=== PATIENT | female | born 1975 | race Caucasian/White ===

== ENCOUNTER 2017-03-04 21:21 | Emergency (ER) | payer SELFPAY ==
[~2017-03-04] VITALS: Ht 165.1 cm; Wt 87.0 kg
[~2017-03-04 21:21] MED LIST: IBUP-232 PO; PROM25TA5 PO; TRAM50TA PO
[2017-03-04 21:25] VITALS: BP 137/76; PULSE 101; RESP 16; TEMP 98.3; O2SAT 97
[2017-03-04] MEDS ORDERED: SODIUM CHLOR 0.9% 1000 ML INJ 1,000 ML IV ONE (21:45)
[2017-03-04] MEDS ORDERED: SODIUM CHLORIDE 0.9% FLUSH 10 ML FLUSH IVF PRN (21:45)
[2017-03-04] MEDS ORDERED: ASPIRIN 81 MG CHEW TAB PO ONE (21:45)
--- NOTE | 2017-03-04 21:56 | PD ---
HPI Chief Complaint: Chest Pain Time Seen by Provider: 21:27 Travel History International Travel<30 days: No Contact w/Intl Traveler<30days: No History of Present Illness HPI This is a 41-year-old female who presents to the emergency department with chest discomfort in the left side of her chest, sharp and stabbing, worse with deep breaths associated with some shortness of breath, intermittent lasting for about 5-10 minutes and then subsiding. She felt like her pain was increasing today. She's also been feeling very weak and tired. She has some intermittent headaches and she has no appetite. She denies any leg swelling and denies any recent long trips. She has a history of 2 hiatal hernia surgeries. Otherwise she has no history of hypertension, diabetes or hyperlipidemia. She does have about a [id number] smoking history and she is currently actively trying to quit. She denies any family history of heart disease. PFSH Past Medical History Asthma: Yes Diminished Hearing: No Genitourinary: Yes (MULTI UTI'S, OVARIAN CYSTS) Hiatal Hernia: Yes Immunizations Current: Yes Past Surgical History Abdominal Surgery: Yes (HIATAL HERNIA REPAIR x2) Cholecystectomy: Yes Social History Alcohol Use: No Tobacco Use: Yes (1/2 CIGS/DAY) Substance Use: No Allergies-Medications (Allergen,Severity, Reaction): Coded Allergies: Sulfa (Sulfonamide Antibiotics) (Unverified Allergy, Severe, HYPER, ) aspirin (Unverified Allergy, Severe, HIVES, 12/20/16) Reported Meds & Prescriptions Reported Meds & Active Scripts Active Phenergan (Promethazine HCl) 25 Mg Tab 25 Mg PO Q6H PRN Ibuprofen 600 Mg Tab 600 Mg PO Q8HR Tramadol (Tramadol HCl) 50 Mg Tab 50 Mg PO Q8H PRN Review of Systems Except as stated in HPI: all other systems reviewed are Neg Physical Exam Narrative GENERAL:Well appearing, no acute distress SKIN: Focused skin assessment warm and dry. HEAD: Atraumatic. Normocephalic. EYES: Pupils equal and round. No injection or drainage. ENT: Moist mucous membranes NECK: Trachea midline. CARDIOVASCULAR: Tachycardic. No murmur appreciated. RESPIRATORY: Clear to auscultation. Breath sounds equal bilaterally. GASTROINTESTINAL: Abdomen soft, non-tender, nondistended. MUSCULOSKELETAL: No obvious deformities. No Homans sign. NEUROLOGICAL: Awake and alert. No obvious cranial nerve deficits. Moving all extremities. PSYCHIATRIC: Appropriate mood and affect; insight and judgment normal. Data Data Last Documented VS Vital Signs Date Time Temp Pulse Resp B/P (MAP) Pulse Ox O2 Delivery O2 Flow Rate FiO2 03/05/17 01:09 78 16 132/77 (95) 98 Room Air 03/04/17 21:25 98.3 Orders Orders Electrocardiogram (03/04/17 21:36) Complete Blood Count With Diff (03/04/17 21:36) Comprehensive Metabolic Panel (03/04/17 21:36) D-Dimer (03/04/17 21:36) Troponin I (03/04/17 21:36) Lipase (03/04/17 21:36) Ecg Monitoring (03/04/17 21:36) Bilateral Bp Monitoring (03/04/17 21:36) Iv Access Insert/Monitor (03/04/17 21:36) Oximetry (03/04/17 21:36) Oxygen Administration (03/04/17 21:36) Aspirin Chew (Aspirin Chew) (03/04/17 21:45) Sodium Chloride 0.9% Flush (Ns Flush) (03/04/17 21:45) Chest, Pa & Lat (03/04/17 21:36) Sodium Chlor 0.9% 1000 Ml Inj (Ns 1000 M (03/04/17 21:45) Thyroid Stimulating Hormone (03/04/17 21:36) Troponin I (03/05/17 00:27) Labs Laboratory Tests Test 03/04/17 22:00 03/05/17 01:07 White Blood Count 9.0 TH/MM3 Red Blood Count 4.02 MIL/MM3 Hemoglobin 11.4 GM/DL Hematocrit 33.9 % Mean Corpuscular Volume 84.3 FL Mean Corpuscular Hemoglobin 28.5 PG Mean Corpuscular Hemoglobin Concent 33.7 % Red Cell Distribution Width 13.4 % Platelet Count 294 TH/MM3 Mean Platelet Volume 8.8 FL Neutrophils (%) (Auto) 56.5 % Lymphocytes (%) (Auto) 28.0 % Monocytes (%) (Auto) 9.3 % Eosinophils (%) (Auto) 3.1 % Basophils (%) (Auto) 3.1 % Neutrophils # (Auto) 5.1 TH/MM3 Lymphocytes # (Auto) 2.5 TH/MM3 Monocytes # (Auto) 0.8 TH/MM3 Eosinophils # (Auto) 0.3 TH/MM3 Basophils # (Auto) 0.3 TH/MM3 CBC Comment DIFF FINAL Differential Comment D-Dimer Quantitative (PE/DVT) 0.34 MG/L FEU Blood Urea Nitrogen 13 MG/DL Creatinine 0.65 MG/DL Random Glucose 94 MG/DL Total Protein 6.8 GM/DL Albumin 3.4 GM/DL Calcium Level 7.8 MG/DL Alkaline Phosphatase 83 U/L Aspartate Amino Transf (AST/SGOT) 16 U/L Alanine Aminotransferase (ALT/SGPT) 22 U/L Total Bilirubin 0.4 MG/DL Sodium Level 139 MEQ/L Potassium Level 3.8 MEQ/L Chloride Level 107 MEQ/L Carbon Dioxide Level 22.6 MEQ/L Anion Gap 9 MEQ/L Estimat Glomerular Filtration Rate 101 ML/MIN Troponin I LESS THAN 0.02 NG/ML LESS THAN 0.02 NG/ML Lipase 391 U/L Thyroid Stimulating Hormone 3rd Gen 1.210 uIU/ML MDM Medical Decision Making Medical Screen Exam Complete: Yes Emergency Medical Condition: Yes Interpretation(s) no leukocytosis electrolytes are reassuring troponin neg x 2 d-dimer normal cxr no acute process Differential Diagnosis Pulmonary embolism, pneumonia, costochondritis, musculoskeletal chest pain, acute coronary syndrome Narrative Course This is a 41-year-old female who presents to the emergency department with atypical left-sided chest pain going on for a month. She was slightly tachycardic on arrival. She is placed on a monitor and IV was established. EKG was nonischemic. Labs were obtained which were all reassuring including a negative d-dimer. Chest x-rays reassuring. Patient is low risk by heart score. She has 2 negative troponins. I suspect her pain is musculoskeletal in nature. I don't have a good explanation for her tachycardia but her d-dimer is negative and her TSH is normal and she improved with some IV fluids. She may have had some anxiety upon coming into the ER. I think she is safe for discharge and follow-up with her primary care physician. I don't think she requires further risk stratification given her only risk for coronary artery disease is smoking. Patient was referred to [facility] for outpatient primary care follow-up. Diagnosis Primary Impression: Atypical chest pain Patient Instructions: General Instructions Additional Instructions: If you develop severe chest pain, shortness of breath, sweating, lightheadedness , dizziness or difficulty breathing return to the emergency department immediately. Followup with your primary care physician in 2-3 days if your symptoms are not resolved. Med/Other Pt SpecificInfo: No Change to Meds Disposition: 01 DISCHARGE HOME Condition: Stable Elle Hermosillo MD Mar 04, 2017 21:56
[2017-03-04 22:05] LABS: AUTOMATED NEUTROPHIL # 5.1 TH/MM3 (1.8-7.7); BASOPHIL # 0.3 TH/MM3 (0-0.2); BASOPHIL % 3.1 % (0.0-2.0); EOSINOPHIL # 0.3 TH/MM3 (0-0.4); EOSINOPHIL % 3.1 % (0.0-4.0); HEMATOCRIT 33.9 % (35.0-46.0); HEMOGLOBIN 11.4 GM/DL (11.6-15.3); LYMPHOCYTE # 2.5 TH/MM3 (1.0-4.8); MEAN CELL VOLUME 84.3 FL (80.0-100.0); MEAN CORPUSCULAR HEMOGLOBIN 28.5 PG (27.0-34.0); MEAN CORPUSCULAR HGB CONC 33.7 % (32.0-36.0); MEAN PLATELET VOLUME 8.8 FL (7.0-11.0); MONO % 9.3 % (0.0-8.0); MONOCYTE # 0.8 TH/MM3 (0-0.9); NEUT % 56.5 % (16.0-70.0); PLATELET COUNT 294 TH/MM3 (150-450); RED BLOOD COUNT 4.02 MIL/MM3 (4.00-5.30); RED CELL DISTRIBUTION WIDTH 13.4 % (11.6-17.2)
[2017-03-04 22:10] LABS: CHLORIDE 107 MEQ/L (98-107); SODIUM (NA) 139 MEQ/L (136-145)
[2017-03-04 22:13] LABS: CALCIUM 7.8 MG/DL (8.5-10.1)
[2017-03-04 22:14] LABS: ALBUMIN 3.4 GM/DL (3.4-5.0); BICARBONATE 22.6 MEQ/L (21.0-32.0); BLOOD UREA NITROGEN 13 MG/DL (7-18); GLUCOSE,RANDOM 94 MG/DL (74-106); LIPASE 391 U/L (73-393)
[2017-03-04 22:15] VITALS: BP_SYST 130; BP_SYST 137; BP_DIAS 72; BP_DIAS 76
[2017-03-04 22:16] VITALS: RESP 16; O2SAT 97
[2017-03-04 22:17] LABS: ALT (GPT) 22 U/L (10-53); AST (GOT) 16 U/L (15-37); CREATININE 0.65 MG/DL (0.50-1.00); GLOMERULAR FILTRATION RATE 101 ML/MIN (>89)
[2017-03-04 22:18] LABS: TOTAL BILIRUBIN ADULT 0.4 MG/DL (0.2-1.0); TOTAL PROTEIN 6.8 GM/DL (6.4-8.2)
[2017-03-04 22:20] LABS: ALKALINE PHOSPHATASE 83 U/L (45-117)
[2017-03-04 22:22] LABS: TROPONIN I LESS THAN 0.02 NG/ML (0.02-0.05)
--- NOTE | 2017-03-04 22:42 | RADRPT ---
EXAM DATE/TIME: 03/04/2017 22:10 [facility] COMPARISON: No previous studies available for comparison. INDICATIONS : Chest pain and shortness of breath. MEDICAL HISTORY : None. SURGICAL HISTORY : Hiatal hernia repair. ENCOUNTER: Initial ACUITY: 1 month PAIN SCORE: 5/10 LOCATION: Bilateral chest FINDINGS: PA and lateral views of the chest demonstrate the lungs to be symmetrically aerated without evidence of mass, infiltrate or effusion. The cardiomediastinal contours are unremarkable. Osseous structure s are intact. CONCLUSION: No acute cardiopulmonary disease. Harvey Wang MD on March 04, 2017 at 22:40 Board Certified Radiologist. This report was verified electronically.
[2017-03-04 23:18] VITALS: BP 117/75; PULSE 76; RESP 16; O2SAT 97
[2017-03-05 01:09] VITALS: BP 132/77; PULSE 78; RESP 16; O2SAT 98
--- NOTE | 2017-03-05 20:45 | EKG ---
Date Performed: 03/04/2017 Time Performed: 21:31:32 PTAGE: 41 years EKG: SINUS TACHYCARDIA ABNORMAL RHYTHM ECG INTERPRETATION BASED ON A DEFAULT AGE OF 41 YEARS NO PREVIOUS TRACING DOCTOR: Quintin Patterson Interpretating Date/Time 03/05/2017 20:40:29
== END 2017-03-05 01:52 | disposition home or self-care (01) ==
LOC: PHED 21:21
DX: R07.89 Other chest pain (principal); R00.0 Tachycardia, unspecified; R06.02 Shortness of breath; R53.83 Other fatigue; R51 Headache; R94.31 Abnormal electrocardiogram [ECG] [EKG]; J45.909 Unspecified asthma, uncomplicated; F17.210 Nicotine dependence, cigarettes, uncomplicated; Z88.2 Allergy status to sulfonamides
CPT/HCPCS: 71020; 80053; 83690; 84443; 84484; 85025; 85379; 93005; 96360; 96361; 99285; J7030

== ENCOUNTER 2017-06-14 08:53 | Emergency (ER) | payer MEDICAID ==
[~2017-06-14] VITALS: Ht 165.1 cm; Wt 83.0 kg
[2017-06-14 08:55] VITALS: BP 141/64; PULSE 85; RESP 16; TEMP 97.7; O2SAT 100
--- NOTE | 2017-06-14 09:20 | PD ---
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 Pain was initially somewhat intermittent but recently fairly constant but does get worse at times. It is very severe she sometimes vomits with the pain. She has been urinating frequently. She does not believe she is . She has no history of kidney stone. She is 1 para 1. Her child is 12 years old [facility] Past Medical History Asthma: Yes Diminished Hearing: No Genitourinary: Yes (MULTI UTI'S, OVARIAN CYSTS) Hiatal Hernia: Yes Immunizations Current: Yes Tetanus Vaccination: Unknown ?: Not LMP: IRREG Past Surgical History Abdominal Surgery: Yes (HIATAL HERNIA REPAIR x2) Cholecystectomy: Yes Social History Alcohol Use: No Tobacco Use: Yes (1/2 CIGS/DAY) Substance Use: No Allergies-Medications (Allergen,Severity, Reaction): Coded Allergies: Sulfa (Sulfonamide Antibiotics) (Unverified Allergy, Severe, HYPER, 06/14/17 ) aspirin (Unverified Allergy, Severe, HIVES, 06/14/17) Reported Meds & Prescriptions Reported Meds & Active Scripts Active No Active Prescriptions or Reported Medications Review of Systems Except as stated in HPI: all other systems reviewed are Neg General / Constitutional: No: Fever, Chills Eyes: No: Diploplia HENT: No: Headaches, Vertigo, Rhinorrhea Cardiovascular: No: Chest Pain or Discomfort, Palpitations Respiratory: No: Cough, Shortness of Breath Gastrointestinal: Positive: Nausea Genitourinary: Positive: Pelvic Pain, No: Urgency, Frequency Musculoskeletal: No: Myalgias, Arthralgias Skin: No Rash Neurologic: No: Dizziness Physical Exam Narrative GENERAL: Well-developed female SKIN: Focused skin assessment warm/dry. HEAD: Atraumatic. Normocephalic. EYES: Pupils equal and round. No scleral icterus. No injection or drainage. ENT: No nasal bleeding or discharge. Mucous membranes pink and moist. NECK: Trachea midline. No JVD. CARDIOVASCULAR: Regular rate and rhythm. No murmur appreciated. RESPIRATORY: No accessory muscle use. Clear to auscultation. Breath sounds equal bilaterally. GASTROINTESTINAL: Abdomen soft, non-tender, nondistended. Hepatic and splenic margins not palpable. BUSINESS CENTER REPRESENTATIVE: There is some white discharge. There is mild pain with movement of the cervix and some right adnexal tenderness. Uterus is slightly enlarged MUSCULOSKELETAL: No obvious deformities. No clubbing. No cyanosis. No edema. NEUROLOGICAL: Awake and alert. No obvious cranial nerve deficits. Motor grossly within normal limits. Normal speech. PSYCHIATRIC: Appropriate mood and affect; insight and judgment normal. Data Data Last Documented VS Vital Signs Date Time Temp Pulse Resp B/P (MAP) Pulse Ox O2 Delivery O2 Flow Rate FiO2 06/14/17 09:12 16 06/14/17 08:55 97.7 85 141/64 (89) 100 Orders Orders Urinalysis - C+S If Indicated (06/14/17 08:58) Ed Urine Pregnancytest Poc (06/14/17 08:58) Complete Blood Count With Diff (06/14/17 09:17) Basic Metabolic Panel (Bmp) (06/14/17 09:17) Gc And Chlamydia Pcr (06/14/17 09:17) Wet Prep Profile (06/14/17 09:17) Urine Culture (06/14/17 09:00) Us Pelvis Comp W Transvaginal (06/14/17 09:43) Labs Laboratory Tests Test 06/14/17 09:00 06/14/17 09:26 06/14/17 09:52 Urine Collection Type CLEAN CATCH Urine Color YELLOW Urine Turbidity CLOUDY Urine pH 7.5 Urine Specific [place] 1.017 Urine Protein NEG mg/dL Urine Glucose (UA) NEG mg/dL Urine Ketones NEG mg/dL Urine Occult Blood TRACE Urine Nitrite NEG Urine Bilirubin NEG Urine Leukocyte Esterase NEG Urine WBC 0-2 /hpf Urine WBC Clumps RARE Urine Squamous Epithelial Cells 0-5 /hpf Urine Amorphous Sediment SMALL Urine Bacteria FEW /hpf Urine Mucus MOD /lpf Microscopic Urinalysis Comment CULTURE INDICATED White Blood Count 11.8 TH/MM3 Red Blood Count 4.06 MIL/MM3 Hemoglobin 11.8 GM/DL Hematocrit 34.7 % Mean Corpuscular Volume 85.5 FL Mean Corpuscular Hemoglobin 29.2 PG Mean Corpuscular Hemoglobin Concent 34.1 % Red Cell Distribution Width 14.0 % Platelet Count 286 TH/MM3 Mean Platelet Volume 7.9 FL Neutrophils (%) (Auto) 73.0 % Lymphocytes (%) (Auto) 16.3 % Monocytes (%) (Auto) 6.9 % Eosinophils (%) (Auto) 1.2 % Basophils (%) (Auto) 2.6 % Neutrophils # (Auto) 8.7 TH/MM3 Lymphocytes # (Auto) 1.9 TH/MM3 Monocytes # (Auto) 0.8 TH/MM3 Eosinophils # (Auto) 0.1 TH/MM3 Basophils # (Auto) 0.3 TH/MM3 CBC Comment DIFF FINAL Differential Comment Blood Urea Nitrogen 7 MG/DL Creatinine 0.61 MG/DL Random Glucose 99 MG/DL Calcium Level 8.5 MG/DL Sodium Level 137 MEQ/L Potassium Level 3.9 MEQ/L Chloride Level 105 MEQ/L Carbon Dioxide Level 24.7 MEQ/L Anion Gap 7 MEQ/L Estimat Glomerular Filtration Rate 109 ML/MIN Clue Cells (Wet Prep) NONE SEEN Vaginal Trichomonas (Wet Prep) NONE SEEN Vaginal Yeast (Wet Prep) NONE SEEN MDM Medical Decision Making Medical Screen Exam Complete: Yes Emergency Medical Condition: Yes Medical Record Reviewed: Yes Differential Diagnosis Differential includes cervicitis, ovarian cysts, Narrative Course Patient has not been sexually active recently I think cervicitis is unlikely. Ultrasound shows a 10 cm fibroid. The right ovary is not seen. Perhaps her pain is secondary to the fibroid. She is not having heavy periods. She is stable for discharge and outpatient follow-up Diagnosis Primary Impression: Uterine fibroid Departure Forms: Tests/Procedures, Work Release Enter return to work date: Jun 14, 2017 Additional Instructions: Take ibuprofen for pain, follow-up with your own medical doctor. It is okay to work Scripts No Active Prescriptions or Reported Meds Disposition: 01 DISCHARGE HOME Condition: Silvestre Mosquera MD Jun 14, 2017 09:20
[2017-06-14 09:21] LABS: BILIRUBIN, URINE NEG (NEG); BLOOD, URINE TRACE (NEG); GLUCOSE,URINE NEG (NEG); KETONE, URINE NEG (NEG); NITRITE,URINE NEG (NEG); PH, URINE 7.5 (5.0-8.5); URINE LEUKOCYTE ESTERASE NEG (NEG)
[2017-06-14 09:35] LABS: AUTOMATED NEUTROPHIL # 8.7 TH/MM3 (1.8-7.7); BASOPHIL # 0.3 TH/MM3 (0-0.2); BASOPHIL % 2.6 % (0.0-2.0); EOSINOPHIL # 0.1 TH/MM3 (0-0.4); EOSINOPHIL % 1.2 % (0.0-4.0); HEMATOCRIT 34.7 % (35.0-46.0); HEMOGLOBIN 11.8 GM/DL (11.6-15.3); LYMPH % 16.3 % (9.0-44.0); LYMPHOCYTE # 1.9 TH/MM3 (1.0-4.8); MEAN CELL VOLUME 85.5 FL (80.0-100.0); MEAN CORPUSCULAR HEMOGLOBIN 29.2 PG (27.0-34.0); MEAN CORPUSCULAR HGB CONC 34.1 % (32.0-36.0); MEAN PLATELET VOLUME 7.9 FL (7.0-11.0); MONO % 6.9 % (0.0-8.0); MONOCYTE # 0.8 TH/MM3 (0-0.9); PLATELET COUNT 286 TH/MM3 (150-450); RED BLOOD COUNT 4.06 MIL/MM3 (4.00-5.30); WHITE BLOOD COUNT 11.8 TH/MM3 (4.0-11.0)
[2017-06-14 09:35] LABS: URINE COLOR YELLOW (YELLW/STRAW)
[2017-06-14 09:38] LABS: MUCUS URINE MOD /lpf (OCC); WBC, URINE 0-2 /hpf (0-5); WHITE BLOOD CELL CLUMPS RARE
[2017-06-14 09:39] LABS: AMORPHOUS SEDIMENT, URINE SMALL; BACTERIA, URINE FEW /hpf; SQUAMOUS EPITHELIAL CELL URINE 0-5 /hpf (0-5)
[2017-06-14 10:01] LABS: CALCIUM 8.5 MG/DL (8.5-10.1)
[2017-06-14 10:02] LABS: BICARBONATE 24.7 MEQ/L (21.0-32.0)
[2017-06-14 10:05] LABS: CREATININE 0.61 MG/DL (0.50-1.00)
--- NOTE | 2017-06-14 12:47 | RADRPT ---
EXAM DATE/TIME: 06/14/2017 10:31 [facility] COMPARISON: No previous studies available for comparison. INDICATIONS : Pelvic pain for 2 months. MEDICAL HISTORY : Asthma. Hiatal hernia. Ovarian cysts. SURGICAL HISTORY : Hernia repair. ENCOUNTER: Initial ACUITY: 2 months PAIN SCORE: 6/10 LOCATION: Bilateral pelvis MEASUREMENTS: UTERUS: 15.2 x 7.5 x 9.9 cm ENDOMETRIAL STRIPE: 7 mm RIGHT OVARY: Non visualized LEFT OVARY: 3.4 x 2.0 x 1.5 cm FINDINGS: UTERUS: There is a large focus of primarily hypoechoic altered echogenicity in the body of the uterus posteri lise consistent with fibroid measuring roughly 10 cm in diameter. There are tiny nabothian cysts in t he cervix. RIGHT OVARY: Nonvisualized LEFT OVARY: There is a tiny calcific focus in the left ovary. MISCELLANEOUS: Small volume of free cul-de-sac fluid CONCLUSION: Fibroid uterus. Small volume of free pelvic fluid. Right ovary is not identified. Small calcific focus in the left ovary with small dermoid not excluded. Percy Dias MD on June 14, 2017 at 12:40 Board Certified Radiologist. This report was verified electronically.
[2017-06-14 13:11] VITALS: BP 116/69
== END 2017-06-14 13:12 | disposition home or self-care (01) ==
LOC: PHED 08:53
DX: D25.9 Leiomyoma of uterus, unspecified (principal); R82.99 Other abnormal findings in urine; J45.909 Unspecified asthma, uncomplicated; F17.210 Nicotine dependence, cigarettes, uncomplicated; Z87.440 Personal history of urinary (tract) infections; Z88.2 Allergy status to sulfonamides; Z88.8 Allergy status to other drugs, medicaments and biological substances
CPT/HCPCS: 76830; 76856; 80048; 81001; 84703; 85025; 87086; 87210; 87491; 87591; 99284